=== PATIENT | male | born 1980 | race Caucasian/White ===

== ENCOUNTER 2024-04-29 20:54 | Emergency (ER) | payer SELFPAY ==
[~2024-04-29] VITALS: Ht 170.2 cm; Wt 82.0 kg
[2024-04-29] MEDS: KETOROLAC 15MG/ML VIAL IM ONE (21:15)
[2024-04-29] MEDS: ONDANSETRON HCL 4MG/2ML INJ IV STA ×2 (22:22)
[2024-04-29] MEDS ORDERED: MORPHINE SULFATE 4 MG/ML INJ (FOR IV/IM USE) IV STA (22:22)
[2024-04-29] MEDS: MORPHINE SULFATE 4 MG/ML INJ (FOR IV/IM USE) IV STA (22:22)
[2024-04-29] MEDS: ETOMIDATE 2MG/ML 10ML VIAL IV ONE (22:30)
[2024-04-30] MEDS: ETOMIDATE 2MG/ML 10ML VIAL IV NR (00:30)
[2024-04-30] MEDS: MORPHINE SULFATE 4 MG/ML INJ (FOR IV/IM USE) IV NR (00:30)
[2024-04-30] MEDS: ONDANSETRON HCL 4MG/2ML INJ IV NR (00:30)
[2024-04-30] MEDS: KETOROLAC 15MG/ML VIAL IM NR (00:30)
[2024-04-30 01:12] VITALS: O2SAT 100
[2024-04-30] MEDS ORDERED: HYDR-4001 MT (02:35)
[2024-04-30 03:00] VITALS: BP 150/101; PULSE 87; RESP 18; TEMP 98.2
== END 2024-04-30 03:21 | disposition home or self-care (01) ==
LOC: ER 20:54
DX: S82.51XA Displaced fracture of medial malleolus of right tibia, initial encounter for closed fracture (principal); X58.XXXA Exposure to other specified factors, initial encounter; Y93.89 Activity, other specified; Y92.89 Other specified places as the place of occurrence of the external cause; Y99.8 Other external cause status
CPT/HCPCS: 73610 ×2; 27762; 99152; 99285; 96372; 96374; 96375; J3490; J1885; J2405; J2270; Z7610 ×3